=== PATIENT | male | born 2000 | race Caucasian/White ===

== ENCOUNTER 2022-10-14 18:42 | Emergency (ER) | payer OTHER ==
[~2022-10-14] VITALS: Ht 188 cm; Wt 65.8 kg
[2022-10-14 18:44] VITALS: BP 113/94
--- NOTE | 2022-10-14 18:52 | NUR ---
PT AMB TO BED 3.
--- NOTE | 2022-10-14 19:00 | NUR ---
DR BURT AT BEDSIDE FOR EVAL
--- NOTE | 2022-10-14 19:11 | NUR ---
Pt report given to SYED LIND. Transfer of care at this time.
[2022-10-14] MEDS ORDERED: ACET-10509 PO (19:15)
[2022-10-14] MEDS ORDERED: ONDA-188 PO (19:15)
--- NOTE | 2022-10-14 19:23 | NUR ---
Patient discharged with v/s stable. Written and verbal after care instructions given and explained. Patient verbalized understanding. Ambulatory with steady gait. All questions addressed prior to discharge. Advised to follow up with PMD.
[2022-10-14 19:24] VITALS: BP 112/86
== END 2022-10-14 19:26 | disposition home or self-care (01) ==
LOC: MED 18:42
DX: S06.0X0A Concussion without loss of consciousness, initial encounter (principal); W22.8XXA Striking against or struck by other objects, initial encounter; Y93.89 Activity, other specified; Y92.89 Other specified places as the place of occurrence of the external cause; Y99.8 Other external cause status
CPT/HCPCS: 99283